=== PATIENT | male | born 1955 | race Caucasian/White ===

== ENCOUNTER → 2016-04-27 | Outpatient (CLI) | payer BC ==
[~2016-04-27] MED LIST: ASPIRIN 32325 MG/TAB PO; ASPIRIN E.C. 8181 MG PO; CHLORTHALIDONE25 MG PO; CLOPIDOGREL PO; FLAXSEED OIL1000 MG PO; IBUPROFEN 200200 MG PO; KLOR-CON 1010 MEQ PO; LEXAPRO 10MG10 MG PO; LIPITOR 40MG TA40 MG PO; LISINOPRIL20 MG PO; LOFIBRA160 MG PO; LOPRESSOR 225 MG/TAB PO; NO HOME MEDICATIONS; PLAVIX 75MG TAB75 MG PO; PROTONIX 40MG T40 MG PO; PROTONIX20 MG PO; UNABLE; ZESTRIL 20MG TA20 MG PO; ZOCOR40 MG PO; imdur
== END ==
LOC: COL.VAS 14:40
DX: M79.604 Pain in right leg (principal)

== ENCOUNTER → 2017-04-02 | Outpatient (CLI) | payer OTHER | LOC: COL.RAD 14:06 | DX: S46.011A Strain of muscle(s) and tendon(s) of the rotator cuff of right shoulder, initial encounter (principal); M24.111 Other articular cartilage disorders, right shoulder; M19.011 Primary osteoarthritis, right shoulder; M75.41 Impingement syndrome of right shoulder; M25.531 Pain in right wrist; W19.XXXA Unspecified fall, initial encounter | CPT/HCPCS: A9585; Q9967 ==

== ENCOUNTER 2017-04-09 08:14 | Outpatient (RCR) | payer OTHER | END 2017-05-28 | disposition home or self-care (01) | LOC: WSOH | DX: S46.011A Strain of muscle(s) and tendon(s) of the rotator cuff of right shoulder, initial encounter (principal); S16.1XXA Strain of muscle, fascia and tendon at neck level, initial encounter; M25.531 Pain in right wrist; Z95.9 Presence of cardiac and vascular implant and graft, unspecified; W17.89XA Other fall from one level to another, initial encounter; Y99.0 Civilian activity done for income or pay ==

== ENCOUNTER → 2017-05-10 | Outpatient (CLI) | payer BC | LOC: COL.CARD 14:50 | DX: R42 Dizziness and giddiness (principal); R00.2 Palpitations ==

== ENCOUNTER 2017-06-21 08:45 | Outpatient (RCR) | payer OTHER | END 2017-08-18 | LOC: WSPT | DX: M75.111 Incomplete rotator cuff tear or rupture of right shoulder, not specified as traumatic (principal) ==

== ENCOUNTER 2017-08-15 11:52 | Outpatient (RCR) | payer OTHER | END 2017-11-13 | disposition home or self-care (01) | LOC: WSPT | DX: M75.111 Incomplete rotator cuff tear or rupture of right shoulder, not specified as traumatic (principal); S43.431D Superior glenoid labrum lesion of right shoulder, subsequent encounter ==

== ENCOUNTER 2017-11-15 10:45 | Outpatient (RCR) | payer OTHER | END 2017-11-20 | disposition home or self-care (01) | LOC: WSPT | DX: S43.431D Superior glenoid labrum lesion of right shoulder, subsequent encounter (principal) ==

== ENCOUNTER 2017-12-10 09:00 | Outpatient (RCR) | payer OTHER | END 2018-02-11 15:52 | disposition home or self-care (01) | LOC: WSPT 09:00 | DX: M75.111 Incomplete rotator cuff tear or rupture of right shoulder, not specified as traumatic (principal); S43.431D Superior glenoid labrum lesion of right shoulder, subsequent encounter ==

== ENCOUNTER 2019-03-06 06:42 | Day surgery (SDC) | payer OTHER ==
[~2019-03-06] VITALS: Ht 188 cm; Wt 121.8 kg
[2019-03-06] VITALS (17 sets, daily range): BP systolic 114–143; BP diastolic 63–100; PULSE 42–82; TEMP 97.9
[~2019-03-06 06:42] MED LIST changes: -CHLORTHALIDONE25 MG PO; +HCTZ 25MG TAB25 MG PO
[2019-03-06 07:47] LABS: HEMOGLOBIN 13.4 g/dl (13.5-18.0); MEAN CELL VOLUME 91 fl (80.0-100.0); MEAN CORPUSCULAR HEMOGLOBIN 31 pg (27.0-31.0); MEAN CORPUSCULAR HGB CONC 34 g/dl (33.0-37.0); MEAN PLATELET VOLUME 11.7 fl (7.4-10.4); PLATELET COUNT 166 K/mm3 (130-400); REDCELL DISTRIBUTION WIDTH-CV 12.4 % (11.5-14.5)
[2019-03-06 08:02] LABS: CALCIUM 8.8 mg/dL (8.4-10.2); CREATININE, serum 1.26 (0.66-1.25); POTASSIUM 3.9 mmol/L (3.4-5.0)
[2019-03-06] MEDS ORDERED: REQUIP2 MG PO (08:02)
[2019-03-06] MEDS ORDERED: NAPROSYN 2250 MG/TAB PO (08:02)
[2019-03-06 08:05] LABS: PROTHROMBIN TIME 11.9 SECONDS (9.7-12.8)
--- NOTE | 2019-03-06 09:01 | NUR ---
SEE MERGE FOR MEDICATION ADMINISTRATION TIMES AND INTRA AND POST SEDATION ASSESSMENTS.
[2019-03-06] MEDS ORDERED: ASPIRIN 81M81 MG/TA2 PO (09:45)
[2019-03-06] MEDS ORDERED: TOPROL XL 25MG25 MG PO (09:45)
[2019-03-06] MEDS ORDERED: NORVASC2.5 MG PO (09:51)
--- NOTE | 2019-03-06 10:05 | NUR ---
Pt returned from procedure.Observed alert and orientated,respirations even and unlabored. at bedside.Report from BELKYS Cook.
--- NOTE | 2019-03-06 10:06 | NUR ---
BEDSIDE HAND OFF REPORT GIVEN TO BELKYS GALLAGHER. HEMOSTASIS NOTED. DRESSING C/D/I. PEDAL PULSES 2+, IV IN LH INFUSING NS 100ML/HR. PT ALERT AND ORIENTED. AT BEDSIDE.
--- NOTE | 2019-03-06 16:02 | NUR ---
Discharg einstructions given to pt.pt verbalizes understanding.INT removed,catheter tip intact.
--- NOTE | 2019-03-06 16:46 | NUR ---
Pt escorted out via wheelchair by this nurse.
== END 2019-03-06 16:47 | disposition home or self-care (01) ==
LOC: COL.CAR 06:42
PROVIDERS: Internal Medicine Cardiovascular Disease
DX: I25.10 Atherosclerotic heart disease of native coronary artery without angina pectoris (principal); R94.39 Abnormal result of other cardiovascular function study
CPT/HCPCS: J1644; J2250; J3010; Q9967

== ENCOUNTER 2019-07-09 07:15 | Outpatient (RCR) | payer OTHER ==
[~2019-07-09 07:15] MED LIST changes: +ASPIRIN 81M81 MG/TA2 PO; +NAPROSYN 2250 MG/TAB PO; +NORVASC2.5 MG PO; +REQUIP2 MG PO; +TOPROL XL 25MG25 MG PO
== END 2019-07-13 | disposition home or self-care (01) ==
LOC: WSPT
DX: Z96.611 Presence of right artificial shoulder joint (principal)
CPT/HCPCS: G0283-GP

== ENCOUNTER → 2022-04-17 | Outpatient (CLI) | payer MEDICARE, OTHER | LOC: COL.RAD 11:42 | DX: K44.9 Diaphragmatic hernia without obstruction or gangrene (principal); K21.9 Gastro-esophageal reflux disease without esophagitis ==

== ENCOUNTER 2022-06-01 07:42 | Day surgery (SDC) | payer MEDICARE, OTHER ==
[~2022-06-01] VITALS: Ht 185.4 cm; Wt 134.6 kg
[2022-06-01 08:11] VITALS: BP 126/82; PULSE 58; TEMP 97.8
[2022-06-01] MEDS ORDERED: CRESTOR20 MG PO (08:15)
[2022-06-01] MEDS ORDERED: DITROPAN XL 5MG5 M1 PO (08:16)
[2022-06-01] MEDS ORDERED: BENICAR40 MG PO (08:16)
[2022-06-01] MEDS ORDERED: DESYREL 50MG50 MG PO (08:17)
[2022-06-01] MEDS ORDERED: ADALAT CC30 MG PO (08:17)
[2022-06-01 10:00] VITALS: BP 71/47; PULSE 56; TEMP 97.8
[2022-06-01 10:15] VITALS: BP 99/80; PULSE 52
[2022-06-01 10:30] VITALS: BP 113/67; PULSE 52
--- NOTE | 2022-06-01 10:35 | NUR ---
1000 RETURNS TO ROOM 1 PER CART. AWAKE, ALERT. AMBULATES TO RECLINER WITH STAND BY ASSIST. RESP UNLABORED. DENIES NAUSEA, ABD PAIN OR DYSPHAGIA. CALL LIGHT AT SIDE. IN ROOM 1010 TOLERATES PO JUICE AND APPLESAUCE WITHOUT NAUSEA. SWALLOWS WITHOUT DIFFICULTY. 1015 DISCHARGE INSTRUCTIONS REVIEWED. PATIENT VERBALIZES UNDERSTANDING. COPY PROVIDED IN DISCHARGE FOLDER. 1021 DR. HUERTA HERE TO VISIT WITH PATIENT 1030 DRESSES SELF
== END 2022-06-01 10:35 | disposition home or self-care (01) ==
LOC: SDCO 07:42
DX: K22.2 Esophageal obstruction (principal); K44.9 Diaphragmatic hernia without obstruction or gangrene; K25.4 Chronic or unspecified gastric ulcer with hemorrhage; K22.10 Ulcer of esophagus without bleeding
CPT/HCPCS: C1726; J2704; J7120